=== PATIENT | female | born 1950 | race Caucasian/White ===

== ENCOUNTER → 2016-09-29 | Outpatient (CLI) | payer OTHER, MEDICAID | LOC: FIMAGING 16:26 | PROVIDERS: ATTEND Nurse Practitioner Family | DX: S92.141A Displaced dome fracture of right talus, initial encounter for closed fracture (principal); S82.51XA Displaced fracture of medial malleolus of right tibia, initial encounter for closed fracture; M85.871 Other specified disorders of bone density and structure, right ankle and foot; M79.89 Other specified soft tissue disorders ==

== ENCOUNTER → 2016-10-21 | Outpatient (CLI) | payer OTHER, MEDICAID | LOC: FIMAGING 12:05 | DX: Z12.31 Encounter for screening mammogram for malignant neoplasm of breast (principal) | CPT/HCPCS: G0202 ==

== ENCOUNTER → 2017-11-16 | Outpatient (CLI) | payer OTHER, MEDICAID | LOC: FIMAGING 13:04 | PROVIDERS: ATTEND Family Medicine | DX: Z12.31 Encounter for screening mammogram for malignant neoplasm of breast (principal) ==

== ENCOUNTER → 2018-02-01 | Outpatient (CLI) | payer OTHER, MEDICAID | LOC: FIMAGING 13:19 | PROVIDERS: ATTEND Family Medicine | DX: Z13.820 Encounter for screening for osteoporosis (principal); M85.89 Other specified disorders of bone density and structure, multiple sites ==